=== PATIENT | female | born 2000 | race Caucasian/White ===

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

== ENCOUNTER 2024-09-18 08:00 | Inpatient (IN) ==
[2024-09-18] MEDS ORDERED: LIDOCAINE 1% LOCAL 20 ML VIAL INFIL PRN (15:47)
[2024-09-18] MEDS: LACTATED RINGER'S 1,000 ML IV PRN (16:14)
[2024-09-18 16:20] LABS: Hematocrit (blood only) 36.3 % (37.0-47.0); Hemoglobin 11.9 g/dl (12.0-16.0); Mean Corpuscular Hemoglobin 27.1 pg (25.0-34.0); Mean Corpuscular Hgb Conc 32.8 g/dL (32.0-36.0); Mean Corpuscular Volume 82.7 fL (80.0-100.0); Mean Platelet Volume 10.8 fL (9.4-12.4); Platelet Count 239 K/uL (130-400); RDW Coefficient of Variation 14.1 % (11.5-14.5); RDW Standard Deviation 42.1 fL (36.4-46.3); Red Blood Count 4.39 M/uL (4.20-5.40); White Blood Count 9.19 K/ul (4.8-10.8)
[2024-09-18] MEDS: OXYTOCIN 30 UNITS/NSS 30 UNITS/500 ML BAG IV PRN (17:30)
--- NOTE | 2024-09-18 20:12 | History & Physical Report ---
Date of Service September 18, 2024 Assessment & Plan (1) Obesity affecting , antepartum: Plan: Induction for obesity first baby cervix with 1 cm yesterday cervical Leong attempted by provider on-call last night apparently fell out immediately afterwards her cervix was 1 to 2 cm on arrival it should be noted she arrived late in the day due to high census load on labor and delivery Pitocin started process reviewed Admission and Anticipated Discharge Date Admission Date: September 18, 2024 History of Present Illness Primary Care Provider: JANNIE Prieto Visit [facility] Calculator Estimated Delivery Date Method Current WG Current Estimate 09/23/24 LMP (Certain) 39w 1d LMP: 12/18/23 : 1 Full term: 0 Premature: 0 Total Number of Induced Abortions: 0 Total Number of Spontaneous Abortions: 0 Ectopics: 0 Multiple births: 0 Number of Living Children: 0 and Delivery Plans pre diabetes, insulin resistance-currently Metformin daily GDM *Begin monthly Growth US's @24wks Obesity (BMI 40 and higher @ beginning of ) *Growth US @ 32wks *Weekly NSTs @ 34wks *BMI 40 or greater offer detailed/level II anatomy at [facility]--elects here *BMI 40 or above offer delivery by [facility].------IOL 09/18 *BMI 50 or greater scheduled detailed/level II anatomy at [facility] Allergies Allergy/AdvReac Type Severity Reaction Status Date / Time Sulfa (Sulfonamide Allergy Intermediate Hives Verified 09/18/24 14:57 Antibiotics) Home Medications Medication Instructions Recorded Confirmed Type blood-glucose meter (Contour Next #1 ea 12/13/21 09/17/24 Rx One Meter) lancets 30 gauge (Easy Comfort #100 ea 03/12/22 09/17/24 Rx Lancets) 21-iron fu-folic acid 1 pill PO DAILY 02/05/24 09/18/24 History [ Complete] acetone (urine) test (Ketone Urine #50 ea 03/02/24 09/17/24 Rx Test strips) blood sugar diagnostic (Contour #150 ea 03/02/24 09/17/24 Rx Next Test Strips) magnesium 1 pill PO DAILY 07/14/24 09/18/24 History escitalopram oxalate 20 mg tablet 20 mg PO DAILY #90 tabs 08/25/24 09/18/24 Rx Patient History Medical History Varicella vaccination Right lower quadrant abdominal pain Dietary counseling and surveillance Menorrhagia Fatigue Dysmenorrhea Routine gynecological examination Allergic rhinitis Anemia Anxiety Arthralgia of ankle Asthma Frequent headaches Asthma with acute exacerbation Ovarian torsion Torsion of left fallopian tube Surgical History H/O unilateral salpingectomy left, due to torsion 2018 S/P laparotomy 2018, torsion of left fallopian tube. Family History Mother Asthma FHx: allergies Father Hypertension Denies family history of Ovarian cancer Breast cancer Colorectal cancer Social History Smoking Status: Never smoker Second Hand Exposure: No; Do You Dip or Chew Tobacco: No; Hx Alcohol Use: No Hx Substance Use: No Preferred Language: Honduran Tufter Required: No Beliefs That Will Affect Care: None marital status: marital status details: Kumar Munguia (25) [phone] Current Living Situation: Spouse Current Living Situation Comment: Patient lives with spouse and dogs. current occupational status: employed current occupation: [employer] Other Information That Helps Us Care for You: No Feels Safe at Home: Yes Safety Concerns: Feels Safe At This Time Physical Exam Constitutional: WD/WN, vitals as above well developed and well nourished Respiratory: normal respiratory effort, lungs clear to auscultation normal respiratory effort Cardiovascular: RRR, no murmur, no edema Gastrointestinal (Abdomen): normal bowel sounds, soft, nontender, no hepatosplenomegaly Results & Data Vital Signs (Past 12 Hours) Vital Signs Temp Pulse Resp BP 09/18/24 20:03 85 09/18/24 20:03 129/66 09/18/24 19:00 98.1 F 18 09/18/24 18:56 82 09/18/24 18:56 138/79 09/18/24 18:31 79 09/18/24 18:31 133/80 09/18/24 17:29 76 09/18/24 17:29 123/77 09/18/24 17:28 18 09/18/24 17:28 98.4 F 18 09/18/24 15:00 98.1 F 97 H 18 137/88 09/18/24 14:48 97 H 137/88 Coding Level of Care Code None Diagnoses Obesity affecting , antepartum O99.210
[2024-09-18] MEDS ORDERED: ACETAMINOPHEN 325 MG TAB PO PRN (23:47)
[2024-09-19] MEDS: ACETAMINOPHEN 325 MG TAB ONE (00:08)
[2024-09-19] MEDS ORDERED: ONDANSETRON INJ 2 MG/ML 2 ML VIAL IV PRN ×2 (02:24→13:37)
[2024-09-19] MEDS ORDERED: NALBUPHINE HCL INJ 10 MG/ML AMP IV PRN (02:24)
[2024-09-19] MEDS ORDERED: diphenhydrAMINE 50 MG/ML VIAL IV PRN (02:24)
[2024-09-19] MEDS ORDERED: SODIUM CHLORIDE 0.9% PF INJ 10 ML VIAL EPI PRN ×2 (02:24→13:37)
[2024-09-19] MEDS ORDERED: LIDOCAINE 2% MPF LOCAL 5 ML VIAL EPI PRN ×2 (02:24→13:37)
[2024-09-19] MEDS ORDERED: PROMETHAZINE 6.25 MG/50.25 ML BAG IV PRN (02:24)
[2024-09-19] MEDS ORDERED: NALOXONE HCL 0.4 MG/1 ML VIAL/CARP IV PRN ×2 (02:24→13:37)
[2024-09-19] MEDS ORDERED: BUPIVACAINE 0.25% PF 30 ML VIAL EPI PRN ×2 (02:24→13:37)
[2024-09-19] MEDS ORDERED: fentaNYL citrate PF 100 MCG/2 ML VIAL EPI PRN ×2 (02:24→13:37)
[2024-09-19] MEDS ORDERED: ePHEDrine sulfate 50 MG/ML AMP IV PRN ×2 (02:24→13:37)
[2024-09-19] MEDS ORDERED: NALOXONE HCL 1 MG in SODIUM CHLORIDE 0.9% 1,000 ML IV PRN ×2 (02:24→13:37)
[2024-09-19] MEDS ORDERED: ROPIVACAINE 0.5% PF 5 MG/ML 20 ML VIAL EPI PRN ×2 (02:24→13:37)
--- NOTE | 2024-09-19 02:24 | Anesthesiology Consultation ---
Date of Service September 19, 2024 Assessment & Plan Chart Review Chart Review: Patient NOT seen in Pre Admission Testing and Acceptable Risk for Labor Epidural Consults Requested none ASA ASA2 Proposed Anesthesia Anesthesia Type: Labor Epidural Risk / Benefits Reviewed With: PT / POA / Parent / Guardian, Accepts Plan and Informed Consent Obtained History Height/Weight Height: 5 ft 6 in Weight: 129.274 kg Allergies Allergy/AdvReac Type Severity Reaction Status Date / Time Sulfa (Sulfonamide Allergy Intermediate Hives Verified 09/18/24 14:57 Antibiotics) Medications Home Medications Medication Instructions Recorded Confirmed Last Taken blood-glucose meter (Contour Next #1 ea 12/13/21 09/17/24 Unknown One Meter) lancets 30 gauge (Easy Comfort #100 ea 03/12/22 09/17/24 Unknown Lancets) 21-iron fu-folic acid 1 pill PO DAILY 02/05/24 09/18/24 09/17/24 20:00 [ Complete] acetone (urine) test (Ketone Urine #50 ea 03/02/24 09/17/24 Unknown Test strips) blood sugar diagnostic (Contour #150 ea 03/02/24 09/17/24 Unknown Next Test Strips) magnesium 1 pill PO DAILY 07/14/24 09/18/24 09/17/24 20:00 escitalopram oxalate 20 mg tablet 20 mg PO DAILY #90 tabs 08/25/24 09/18/24 09/17/24 20:00 Active Medications Generic Name Dose Route Start Last Admin Trade Name Freq PRN Reason Stop Dose Admin Lactated Ringer's 1,000 mls @ 125 mls/hr 09/18/24 15:47 09/19/24 02:07 Lr IV 09/19/24 15:46 125 mls/hr .Q8H PRN Administration L&D Protocol Protocol Oxytocin 30 units in 500 mls @ 14 mls/hr 09/18/24 17:08 09/19/24 01:00 Pitocin 30 Units/Nss IV 09/20/24 17:07 0.84 units/hr .Q24H PRN 14 mls/hr Labor Induction/Augmentation Titration Protocol 0.84 UNITS/HR Past Medical History Medical History Varicella vaccination Right lower quadrant abdominal pain Dietary counseling and surveillance Menorrhagia Fatigue Dysmenorrhea Routine gynecological examination Allergic rhinitis Anemia Anxiety Arthralgia of ankle Asthma Frequent headaches Asthma with acute exacerbation Ovarian torsion Torsion of left fallopian tube Exercise / Class Metabolic Activity II 4-5 Yardwork/Stairs/Walk up hill Past Family History Family History Mother Asthma FHx: allergies Father Hypertension Denies family history of Ovarian cancer Breast cancer Colorectal cancer Past Surgical History Surgical History H/O unilateral salpingectomy left, due to torsion 2018 S/P laparotomy 2018, torsion of left fallopian tube. Past Anesthesia History No Hx of Anesthesia Complications and No Family Hx of Anesthesia Complications History of PONV No Hx of PONV and No Hx of Motion Sickness Social History Smoking Status: Never smoker Do You Dip or Chew Tobacco: No Hx Alcohol Use: No Hx Substance Use: No substance use type: does not use Physical Exam Vital Signs Last Vital Signs Temp 36.7 C 09/18/24 21:59 Pulse 81 09/19/24 02:22 Resp 18 09/18/24 21:59 BP 124/77 09/19/24 01:07 Pulse Ox 98 09/19/24 02:22 ENMT Mouth: no dentition abnormality Thyromental Distance: > or= 3.5 Finger Breadths Mallampati Class: II Neck normal visual inspection Respiratory normal respiratory effort Auscultation: lungs clear to auscultation bilaterally Cardiovascular Rate/Rhythm: regular rate and regular rhythm Psychiatric Orientation: alert Testing Laboratory Results 09/18/24 15:57 09/19/24 09/18/24 00:42 16:50 POC Glucose 84 78
[2024-09-19] MEDS: fentANYL 2 MCG/ML BUPIVacaine 0.125%-NSS 100ML BAG ONE ×2 (02:47→14:20)
[2024-09-19] MEDS: BUPIVACAINE 0.25% PF 30 ML VIAL ONE ×2 (02:50→13:49)
[2024-09-19] MEDS: SODIUM CHLORIDE 0.9% PF INJ 10 ML VIAL ONE ×2 (02:50→13:50)
[2024-09-19] MEDS: fentaNYL citrate PF 100 MCG/2 ML VIAL ONE ×2 (02:54→13:42)
[2024-09-19] MEDS: ePHEDrine sulfate 50 MG/ML AMP ONE (02:54)
[2024-09-19] MEDS: LIDOCAINE 2%/EPINEPHRINE 1:200,000 20 ML PF ONE ×2 (02:54→13:50)
[2024-09-19] MEDS: BUPIVACAINE 0.25% PF 30 ML VIAL EPI STA ×2 (03:11→13:42)
[2024-09-19] MEDS: fentaNYL citrate PF 100 MCG/2 ML VIAL EPI STA ×2 (03:11→14:22)
[2024-09-19] MEDS: SODIUM CHLORIDE 0.9% PF INJ 10 ML VIAL EPI STA ×2 (03:12→15:30)
[2024-09-19] MEDS: LIDOCAINE 2%/EPINEPHRINE 1:200,000 20 ML PF EPI STA ×2 (03:12→15:30)
--- NOTE | 2024-09-19 09:30 | Labor Progress Brief Note ---
Date of Service September 19, 2024 Subjective comfortable w/ epidural, ?rom Assessment & Plan (1) Obesity affecting , antepartum: (2) Diabetes mellitus during , antepartum: Plan 24 yo G1 at 39 3/7 [facility] admitted for IOL for obesity, a1gdm VSS Fetus cat 1 Labor - pit at 20, now 2.5-3cm. ?rom earlier but can feel thin membrane and discussed arom and pt agreeable, forebag ruptured clear fluid. IUPC placed to help guide ctx, ok to max to 24 and re-assess. May consider pit break pending progress GDM - bg wnl overnight GBS neg epidural in place Admission and Anticipated Discharge Date Admission Date: September 18, 2024 Physical Exam Genitourinary: Manual OB Exam: + cervical dilation (2.5/3), + cervical effacement 50%, + station -2 and + amniotic fluid (very thin residual membrane palpated, arom completed of residual bag clear ) OB Exam Monitor Tracing: + external FHT monitor used, + intra-uterine pressure catheter used (placed, q4) and + category I (135/mod/+accel/-decel) Results & Data Vital Signs (Past 12 Hours) Vital Signs Temp Pulse Resp BP Pulse Ox 09/19/24 09:27 82 100 09/19/24 09:22 74 99 09/19/24 09:17 89 98 09/19/24 09:16 78 122/69 09/19/24 09:12 92 H 99 09/19/24 09:07 76 98 09/19/24 09:02 84 98 09/19/24 09:01 81 128/75 09/19/24 08:57 93 H 98 09/19/24 08:52 74 96 09/19/24 08:47 80 97 09/19/24 08:46 77 126/71 09/19/24 08:42 97 09/19/24 08:42 80 09/19/24 08:42 80 92 09/19/24 08:37 84 98 09/19/24 08:32 82 122/72 97 09/19/24 08:27 87 98 09/19/24 08:22 86 100 09/19/24 08:17 82 98 09/19/24 08:16 89 132/79 09/19/24 08:12 83 97 09/19/24 08:08 81 92 09/19/24 08:07 86 98 09/19/24 08:02 84 98 09/19/24 08:01 84 132/88 09/19/24 07:57 88 97 09/19/24 07:52 83 97 09/19/24 07:47 85 98 09/19/24 07:46 81 123/71 09/19/24 07:42 78 99 09/19/24 07:37 84 100 09/19/24 07:34 85 89 L 09/19/24 07:32 85 99 09/19/24 07:31 76 116/70 09/19/24 07:27 83 92 09/19/24 07:23 89 94 09/19/24 07:22 88 95 09/19/24 07:17 83 100 09/19/24 07:16 81 119/64 09/19/24 07:12 76 97 09/19/24 07:07 77 96 09/19/24 07:06 97.9 F 15 09/19/24 07:02 82 120/64 95 09/19/24 06:58 88 92 09/19/24 06:57 91 H 99 09/19/24 06:52 83 96 09/19/24 06:47 91 H 120/75 94 09/19/24 06:42 78 97 09/19/24 06:37 80 97 09/19/24 06:32 76 97 09/19/24 06:31 76 103/52 L 09/19/24 06:27 78 98 09/19/24 06:22 79 98 09/19/24 06:17 83 113/57 L 96 09/19/24 06:12 77 97 09/19/24 06:07 80 98 09/19/24 06:04 84 93 09/19/24 06:02 79 98 09/19/24 06:01 88 128/76 09/19/24 05:57 82 100 09/19/24 05:53 78 94 09/19/24 05:52 81 99 09/19/24 05:47 84 132/81 100 09/19/24 05:44 87 92 09/19/24 05:42 88 99 09/19/24 05:38 93 H 91 09/19/24 05:37 87 99 09/19/24 05:32 98 09/19/24 05:32 83 09/19/24 05:32 78 130/74 09/19/24 05:27 79 98 09/19/24 05:22 79 98 09/19/24 05:17 78 99 09/19/24 05:16 78 126/76 09/19/24 05:12 80 99 09/19/24 05:07 77 99 09/19/24 05:03 98.1 F 85 18 126/77 09/19/24 05:02 83 99 09/19/24 04:57 80 98 09/19/24 04:52 86 98 09/19/24 04:51 82 128/69 09/19/24 04:49 85 88/54 L 09/19/24 04:48 83 78/48 L 09/19/24 04:47 83 100 09/19/24 04:42 97 H 99 09/19/24 04:37 86 100 09/19/24 04:32 100 H 99 09/19/24 04:31 90 131/81 09/19/24 04:27 98 H 99 09/19/24 04:22 102 H 100 09/19/24 04:17 86 99 09/19/24 04:16 79 120/64 09/19/24 04:12 78 95 09/19/24 04:07 77 96 09/19/24 04:02 79 122/64 97 09/19/24 03:57 86 96 09/19/24 03:52 79 97 09/19/24 03:47 83 97 09/19/24 03:46 79 115/59 L 09/19/24 03:44 77 93 09/19/24 03:42 78 96 09/19/24 03:37 78 97 09/19/24 03:36 79 94 09/19/24 03:32 78 125/59 L 97 09/19/24 03:28 78 94 09/19/24 03:27 73 96 09/19/24 03:22 75 97 09/19/24 03:17 78 122/58 L 97 09/19/24 03:15 15 09/19/24 03:15 15 09/19/24 03:12 73 97 09/19/24 03:07 76 97 09/19/24 03:02 75 99 09/19/24 03:00 76 115/62 09/19/24 02:57 83 18 99 09/19/24 02:56 83 111/63 09/19/24 02:52 86 98 09/19/24 02:50 16 09/19/24 02:50 16 09/19/24 02:49 81 116/59 L 09/19/24 02:47 79 123/64 99 09/19/24 02:46 78 18 128/65 09/19/24 02:43 81 194/131 H 90 09/19/24 02:42 82 97 09/19/24 02:40 50 L 95/51 L 09/19/24 02:37 73 98 09/19/24 02:32 92 H 100 09/19/24 02:30 100 H 123/77 09/19/24 02:27 87 98 09/19/24 02:22 81 98 09/19/24 02:17 80 98 09/19/24 02:12 82 99 09/19/24 02:07 90 99 09/19/24 02:02 88 100 09/19/24 01:57 92 H 98 09/19/24 01:52 88 99 09/19/24 01:47 94 H 99 09/19/24 01:42 82 97 09/19/24 01:37 84 98 09/19/24 01:32 82 98 09/19/24 01:27 79 97 09/19/24 01:22 86 98 09/19/24 01:17 88 98 09/19/24 01:12 80 98 09/19/24 01:07 93 H 124/77 99 09/18/24 23:45 75 09/18/24 23:45 129/83 09/18/24 23:19 75 09/18/24 23:19 120/68 09/18/24 21:59 18 09/18/24 21:59 98.1 F 18 09/18/24 21:59 84 09/18/24 21:59 132/84 Coding Level of Care Code None Diagnoses Obesity affecting , antepartum O99.210 Diabetes mellitus during , antepartum O24.919
[2024-09-19] MEDS: fentANYL 2 MCG/ML BUPIVacaine 0.125%-NSS 100ML BAG EPI PRN (10:59)
[2024-09-19] MEDS ORDERED: NURSING L&D Epidural Breakthrough Pain Update ONE (11:07)
[2024-09-19] MEDS ORDERED: ROPIVACAINE 0.5% 5 MG/ML 30 ML VIAL ONE (11:51)
[2024-09-19] MEDS ORDERED: LIDOCAINE 2%/EPINEPHRINE 1:200,000 20 ML PF ONE (11:51)
--- NOTE | 2024-09-19 12:03 | Anesthesia Procedure Note ---
Date of Service September 19, 2024 Anesthesia Epidural Re-Dose Vital Signs Temp Pulse Resp BP Pulse Ox 36.8 C 83 15 143/102 H 94 09/19/24 11:31 09/19/24 11:57 09/19/24 07:06 09/19/24 11:48 09/19/24 11:57 Notes Pain Intensity: 7 Dilatation (cm): 2.5 Effacement (%): 50 Called by nursing to evaluate epidural as the patient is having increased pain. The epidural was re-dosed with the following medications (all medications via epidural route) after negative aspiration of the epidural catheter for CSF/HEME 1.2% lidocaine and 0.2% ropivacaine 6ml then 4ml turned to other side - patient not sure different - seems to ease sooner after peak cx - hasn't been checked in a while - will let this bolus set in and reevaluate later. After Epidural Re-Dose Mental Status: alert / awake / arousable Pain: improving with treatment Airway Patency, RR, SpO2: stable & adequate BP & HR: stable & adequate
--- NOTE | 2024-09-19 12:59 | Labor Progress Brief Note ---
Date of Service September 19, 2024 Subjective very uncomfortable even after redose Assessment & Plan (1) Obesity affecting , antepartum: (2) Diabetes mellitus during , antepartum: Plan 24 yo G1 at 39 3/7 [facility] admitted for IOL for obesity, a1gdm VSS Fetus cat 1 Labor - pit at 24, good progress noted. Mostly adequate though occ short period of spacing but then returns. Pt very uncomfortable still after redose so anes thesia will be made aware, will hold pit at 24 for now since has made good progress until gets more comfortable GDM - bg wnl overnight GBS neg epidural in place Admission and Anticipated Discharge Date Admission Date: September 18, 2024 Physical Exam Genitourinary: Manual OB Exam: + cervical dilation (4-5), + cervical effacement 70% and + station -1 OB Exam Monitor Tracing: + external FHT monitor used, + intra-uterine pressure catheter used (q3, mostly adequate but has periods of spacing) and + category II (140/mod/+accel/very occ variable) Results & Data Vital Signs (Past 12 Hours) Vital Signs Temp Pulse Resp BP Pulse Ox 09/19/24 12:53 101 H 79 L 09/19/24 12:49 90 144/73 H 09/19/24 12:48 85 86 L 09/19/24 12:47 86 100 09/19/24 12:42 91 09/19/24 12:42 94 H 09/19/24 12:42 104 H 136/82 09/19/24 12:41 87 92 09/19/24 12:37 84 100 09/19/24 12:35 99 H 92 09/19/24 12:33 82 130/72 09/19/24 12:32 99 H 100 09/19/24 12:27 88 100 09/19/24 12:26 100 H 93 09/19/24 12:22 90 100 09/19/24 12:18 78 124/65 09/19/24 12:17 80 100 09/19/24 12:16 86 139/72 09/19/24 12:12 100 09/19/24 12:12 88 09/19/24 12:12 84 131/71 09/19/24 12:09 76 123/65 09/19/24 12:07 84 100 09/19/24 12:06 73 116/62 09/19/24 12:03 81 93 09/19/24 12:02 79 116/65 99 09/19/24 11:57 83 94 09/19/24 11:56 80 86 L 09/19/24 11:52 88 100 09/19/24 11:48 79 143/102 H 09/19/24 11:47 84 100 09/19/24 11:46 88 93 09/19/24 11:42 79 100 09/19/24 11:37 81 100 09/19/24 11:32 82 152/79 H 100 09/19/24 11:31 98.2 F 09/19/24 11:27 96 H 98 09/19/24 11:22 81 100 09/19/24 11:17 82 100 09/19/24 11:16 78 121/71 09/19/24 11:12 85 98 09/19/24 11:11 87 87 L 09/19/24 11:07 80 100 09/19/24 11:02 99 09/19/24 11:02 78 09/19/24 11:02 77 120/68 09/19/24 10:57 82 98 09/19/24 10:52 77 98 09/19/24 10:47 83 120/61 99 09/19/24 10:42 77 97 09/19/24 10:37 83 98 09/19/24 10:36 77 118/61 09/19/24 10:34 84 134/106 H 09/19/24 10:32 80 100 09/19/24 10:27 79 100 09/19/24 10:22 79 100 09/19/24 10:18 76 116/64 09/19/24 10:17 80 99 09/19/24 10:12 79 99 09/19/24 10:07 77 97 09/19/24 10:03 78 120/68 09/19/24 10:02 78 97 09/19/24 09:57 86 98 09/19/24 09:52 87 97 09/19/24 09:51 93 H 90 09/19/24 09:47 75 98 09/19/24 09:46 81 128/79 09/19/24 09:42 81 98 09/19/24 09:37 84 98 09/19/24 09:32 83 99 09/19/24 09:31 82 127/77 03/29/25 09:27 82 100 09/19/24 09:22 74 99 09/19/24 09:17 89 98 09/19/24 09:16 78 122/69 09/19/24 09:12 92 H 99 09/19/24 09:07 76 98 09/19/24 09:02 84 98 09/19/24 09:01 81 128/75 09/19/24 08:57 93 H 98 09/19/24 08:52 74 96 09/19/24 08:47 80 97 09/19/24 08:46 77 126/71 09/19/24 08:42 97 09/19/24 08:42 80 09/19/24 08:42 80 92 09/19/24 08:37 84 98 09/19/24 08:32 82 122/72 97 09/19/24 08:27 87 98 09/19/24 08:22 86 100 09/19/24 08:17 82 98 09/19/24 08:16 89 132/79 09/19/24 08:12 83 97 09/19/24 08:08 81 92 09/19/24 08:07 86 98 09/19/24 08:02 84 98 09/19/24 08:01 84 132/88 09/19/24 07:57 88 97 09/19/24 07:52 83 97 09/19/24 07:47 85 98 09/19/24 07:46 81 123/71 09/19/24 07:42 78 99 09/19/24 07:37 84 100 09/19/24 07:34 85 89 L 09/19/24 07:32 85 99 09/19/24 07:31 76 116/70 09/19/24 07:27 83 92 09/19/24 07:23 89 94 09/19/24 07:22 88 95 09/19/24 07:17 83 100 09/19/24 07:16 81 119/64 09/19/24 07:12 76 97 09/19/24 07:07 77 96 09/19/24 07:06 97.9 F 15 09/19/24 07:02 82 120/64 95 09/19/24 06:58 88 92 09/19/24 06:57 91 H 99 09/19/24 06:52 83 96 09/19/24 06:47 91 H 120/75 94 09/19/24 06:42 78 97 09/19/24 06:37 80 97 09/19/24 06:32 76 97 09/19/24 06:31 76 103/52 L 09/19/24 06:27 78 98 09/19/24 06:22 79 98 09/19/24 06:17 83 113/57 L 96 09/19/24 06:12 77 97 09/19/24 06:07 80 98 09/19/24 06:04 84 93 09/19/24 06:02 79 98 09/19/24 06:01 88 128/76 09/19/24 05:57 82 100 09/19/24 05:53 78 94 09/19/24 05:52 81 99 09/19/24 05:47 84 132/81 100 09/19/24 05:44 87 92 09/19/24 05:42 88 99 09/19/24 05:38 93 H 91 09/19/24 05:37 87 99 09/19/24 05:32 98 09/19/24 05:32 83 09/19/24 05:32 78 130/74 09/19/24 05:27 79 98 09/19/24 05:22 79 98 09/19/24 05:17 78 99 09/19/24 05:16 78 126/76 09/19/24 05:12 80 99 09/19/24 05:07 77 99 09/19/24 05:03 98.1 F 85 18 126/77 09/19/24 05:02 83 99 09/19/24 04:57 80 98 09/19/24 04:52 86 98 09/19/24 04:51 82 128/69 09/19/24 04:49 85 88/54 L 09/19/24 04:48 83 78/48 L 09/19/24 04:47 83 100 09/19/24 04:42 97 H 99 09/19/24 04:37 86 100 09/19/24 04:32 100 H 99 09/19/24 04:31 90 131/81 09/19/24 04:27 98 H 99 09/19/24 04:22 102 H 100 09/19/24 04:17 86 99 09/19/24 04:16 79 120/64 03/29/25 04:12 78 95 09/19/24 04:07 77 96 09/19/24 04:02 79 122/64 97 09/19/24 03:57 86 96 09/19/24 03:52 79 97 09/19/24 03:47 83 97 09/19/24 03:46 79 115/59 L 09/19/24 03:44 77 93 09/19/24 03:42 78 96 09/19/24 03:37 78 97 09/19/24 03:36 79 94 09/19/24 03:32 78 125/59 L 97 09/19/24 03:28 78 94 09/19/24 03:27 73 96 09/19/24 03:22 75 97 09/19/24 03:17 78 122/58 L 97 09/19/24 03:15 15 09/19/24 03:15 15 09/19/24 03:12 73 97 09/19/24 03:07 76 97 09/19/24 03:02 75 99 09/19/24 03:00 76 115/62 09/19/24 02:57 83 18 99 09/19/24 02:56 83 111/63 09/19/24 02:52 86 98 09/19/24 02:50 16 09/19/24 02:50 16 09/19/24 02:49 81 116/59 L 09/19/24 02:47 79 123/64 99 09/19/24 02:46 78 18 128/65 09/19/24 02:43 81 194/131 H 90 09/19/24 02:42 82 97 09/19/24 02:40 50 L 95/51 L 09/19/24 02:37 73 98 09/19/24 02:32 92 H 100 09/19/24 02:30 100 H 123/77 09/19/24 02:27 87 98 09/19/24 02:22 81 98 09/19/24 02:17 80 98 09/19/24 02:12 82 99 09/19/24 02:07 90 99 09/19/24 02:02 88 100 09/19/24 01:57 92 H 98 09/19/24 01:52 88 99 09/19/24 01:47 94 H 99 09/19/24 01:42 82 97 09/19/24 01:37 84 98 09/19/24 01:32 82 98 09/19/24 01:27 79 97 09/19/24 01:22 86 98 09/19/24 01:17 88 98 09/19/24 01:12 80 98 09/19/24 01:07 93 H 124/77 99 Coding Level of Care Code None Diagnoses Obesity affecting , antepartum O99.210 Diabetes mellitus during , antepartum O24.919
--- NOTE | 2024-09-19 13:32 | Anesthesia Procedure Note ---
Date of Service September 19, 2024 Anesthesia Epidural Re-Dose Vital Signs Temp Pulse Resp BP Pulse Ox 36.8 C 73 15 121/67 100 09/19/24 11:31 09/19/24 13:28 09/19/24 07:06 09/19/24 13:28 09/19/24 13:24 Notes Pain Intensity: 8 Dilatation (cm): 2.5 Effacement (%): 50 After Epidural Re-Dose Mental Status: alert / awake / arousable Pain: see Notes below Airway Patency, RR, SpO2: stable & adequate BP & HR: stable & adequate Additional Notes: patient not improved with redose - cather at 8 to 9 cm - ?maybe too far out? decided to replace - did cse as per anesthesia record with difficulty - much improved
[2024-09-19] MEDS ORDERED: fentANYL 2 MCG/ML BUPIVacaine 0.125%-NSS 100ML BAG EPI PRN (13:37)
--- NOTE | 2024-09-19 15:10 | Labor Progress Brief Note ---
Date of Service September 19, 2024 Subjective comfortable w/ new epidural Assessment & Plan (1) Obesity affecting , antepartum: (2) Diabetes mellitus during , antepartum: Plan 24 yo G1 at 39 3/7 wga admitted for IOL for obesity, a1gdm VSS Fetus cat 1 Labor - pit at 24, now complete but not feeling much with recent epidural change. Will continue repositioning w/ peanut ball to help baby come down and then start pushing GDM - bg wnl overnight GBS neg epidural in place Admission and Anticipated Discharge Date Admission Date: September 18, 2024 Physical Exam Genitourinary: Manual OB Exam: + cervical dilation 10 cm, + cervical effacement 100% and + station 0 OB Exam Monitor Tracing: + external FHT monitor used, + intra-uterine pressure catheter used (q3, mostly adequate but has periods of spacing) and + category II (140/mod/+accel/occ early and variables) Results & Data Vital Signs (Past 12 Hours) Vital Signs Temp Pulse Resp BP Pulse Ox 09/19/24 14:57 93 H 94 09/19/24 14:55 85 141/82 H 09/19/24 14:51 98 H 93 09/19/24 14:47 81 93 09/19/24 14:43 80 94 09/19/24 14:41 82 116/67 09/19/24 14:32 80 92 09/19/24 14:25 94 09/19/24 14:25 80 09/19/24 14:25 79 130/86 09/19/24 14:18 79 94 09/19/24 14:17 75 96 09/19/24 14:09 80 119/66 09/19/24 14:05 79 94 09/19/24 13:59 80 96 09/19/24 13:57 85 93 09/19/24 13:55 98.2 F 09/19/24 13:54 96 09/19/24 13:54 90 09/19/24 13:54 88 112/59 L 09/19/24 13:50 84 93 09/19/24 13:49 92 H 96 09/19/24 13:48 88 110/59 L 09/19/24 13:45 84 94 09/19/24 13:44 86 95 09/19/24 13:43 91 H 104/60 09/19/24 13:42 82 100/58 L 09/19/24 13:40 81 104/57 L 09/19/24 13:39 84 95 09/19/24 13:38 78 102/56 L 09/19/24 13:36 81 110/57 L 09/19/24 13:34 82 102/59 L 99 09/19/24 13:32 89 102/57 L 09/19/24 13:30 68 109/66 09/19/24 13:29 71 100 09/19/24 13:28 73 121/67 09/19/24 13:24 83 100 09/19/24 13:19 115 H 95 09/19/24 13:12 86 L 09/19/24 13:12 82 09/19/24 13:12 95 H 91 09/19/24 13:06 86 94 09/19/24 13:04 75 131/74 09/19/24 13:01 85 97 09/19/24 12:53 100 09/19/24 12:53 97 H 09/19/24 12:53 101 H 79 L 09/19/24 12:49 90 144/73 H 09/19/24 12:48 85 86 L 09/19/24 12:47 86 100 09/19/24 12:42 91 09/19/24 12:42 94 H 09/19/24 12:42 104 H 136/82 09/19/24 12:41 87 92 09/19/24 12:37 84 100 09/19/24 12:35 99 H 92 09/19/24 12:33 82 130/72 09/19/24 12:32 99 H 100 09/19/24 12:27 88 100 09/19/24 12:26 100 H 93 09/19/24 12:22 90 100 09/19/24 12:18 78 124/65 09/19/24 12:17 80 100 09/19/24 12:16 86 139/72 09/19/24 12:12 100 09/19/24 12:12 88 09/19/24 12:12 84 131/71 09/19/24 12:09 76 123/65 09/19/24 12:07 84 100 09/19/24 12:06 73 116/62 09/19/24 12:03 81 93 09/19/24 12:02 79 116/65 99 09/19/24 11:57 83 94 09/19/24 11:56 80 86 L 09/19/24 11:52 88 100 09/19/24 11:48 79 143/102 H 09/19/24 11:47 84 100 09/19/24 11:46 88 93 09/19/24 11:42 79 100 09/19/24 11:37 81 100 09/19/24 11:32 82 152/79 H 100 09/19/24 11:31 98.2 F 09/19/24 11:27 96 H 98 09/19/24 11:22 81 100 09/19/24 11:17 82 100 09/19/24 11:16 78 121/71 09/19/24 11:12 85 98 09/19/24 11:11 87 87 L 09/19/24 11:07 80 100 09/19/24 11:02 99 09/19/24 11:02 78 09/19/24 11:02 77 120/68 09/19/24 10:57 82 98 09/19/24 10:52 77 98 09/19/24 10:47 83 120/61 99 09/19/24 10:42 77 97 09/19/24 10:37 83 98 09/19/24 10:36 77 118/61 09/19/24 10:34 84 134/106 H 09/19/24 10:32 80 100 09/19/24 10:27 79 100 09/19/24 10:22 79 100 09/19/24 10:18 76 116/64 09/19/24 10:17 80 99 09/19/24 10:12 79 99 09/19/24 10:07 77 97 09/19/24 10:03 78 120/68 09/19/24 10:02 78 97 09/19/24 09:57 86 98 09/19/24 09:52 87 97 09/19/24 09:51 93 H 90 09/19/24 09:47 75 98 09/19/24 09:46 81 128/79 09/19/24 09:42 81 98 09/19/24 09:37 84 98 09/19/24 09:32 83 99 09/19/24 09:31 82 127/77 09/19/24 09:27 82 100 09/19/24 09:22 74 99 09/19/24 09:17 89 98 09/19/24 09:16 78 122/69 09/19/24 09:12 92 H 99 09/19/24 09:07 76 98 09/19/24 09:02 84 98 09/19/24 09:01 81 128/75 09/19/24 08:57 93 H 98 09/19/24 08:52 74 96 09/19/24 08:47 80 97 09/19/24 08:46 77 126/71 09/19/24 08:42 97 09/19/24 08:42 80 09/19/24 08:42 80 92 09/19/24 08:37 84 98 09/19/24 08:32 82 122/72 97 09/19/24 08:27 87 98 09/19/24 08:22 86 100 09/19/24 08:17 82 98 09/19/24 08:16 89 132/79 09/19/24 08:12 83 97 09/19/24 08:08 81 92 09/19/24 08:07 86 98 09/19/24 08:02 84 98 09/19/24 08:01 84 132/88 09/19/24 07:57 88 97 09/19/24 07:52 83 97 09/19/24 07:47 85 98 09/19/24 07:46 81 123/71 09/19/24 07:42 78 99 09/19/24 07:37 84 100 09/19/24 07:34 85 89 L 09/19/24 07:32 85 99 09/19/24 07:31 76 116/70 09/19/24 07:27 83 92 09/19/24 07:23 89 94 09/19/24 07:22 88 95 09/19/24 07:17 83 100 09/19/24 07:16 81 119/64 09/19/24 07:12 76 97 09/19/24 07:07 77 96 09/19/24 07:06 97.9 F 15 09/19/24 07:02 82 120/64 95 09/19/24 06:58 88 92 09/19/24 06:57 91 H 99 09/19/24 06:52 83 96 09/19/24 06:47 91 H 120/75 94 09/19/24 06:42 78 97 09/19/24 06:37 80 97 09/19/24 06:32 76 97 09/19/24 06:31 76 103/52 L 09/19/24 06:27 78 98 09/19/24 06:22 79 98 09/19/24 06:17 83 113/57 L 96 09/19/24 06:12 77 97 09/19/24 06:07 80 98 09/19/24 06:04 84 93 09/19/24 06:02 79 98 09/19/24 06:01 88 128/76 09/19/24 05:57 82 100 09/19/24 05:53 78 94 09/19/24 05:52 81 99 09/19/24 05:47 84 132/81 100 09/19/24 05:44 87 92 09/19/24 05:42 88 99 09/19/24 05:38 93 H 91 09/19/24 05:37 87 99 09/19/24 05:32 98 09/19/24 05:32 83 09/19/24 05:32 78 130/74 09/19/24 05:27 79 98 09/19/24 05:22 79 98 09/19/24 05:17 78 99 09/19/24 05:16 78 126/76 09/19/24 05:12 80 99 09/19/24 05:07 77 99 09/19/24 05:03 98.1 F 85 18 126/77 09/19/24 05:02 83 99 09/19/24 04:57 80 98 09/19/24 04:52 86 98 09/19/24 04:51 82 128/69 09/19/24 04:49 85 88/54 L 09/19/24 04:48 83 78/48 L 09/19/24 04:47 83 100 09/19/24 04:42 97 H 99 09/19/24 04:37 86 100 09/19/24 04:32 100 H 99 09/19/24 04:31 90 131/81 09/19/24 04:27 98 H 99 09/19/24 04:22 102 H 100 09/19/24 04:17 86 99 09/19/24 04:16 79 120/64 09/19/24 04:12 78 95 09/19/24 04:07 77 96 09/19/24 04:02 79 122/64 97 09/19/24 03:57 86 96 09/19/24 03:52 79 97 09/19/24 03:47 83 97 09/19/24 03:46 79 115/59 L 09/19/24 03:44 77 93 09/19/24 03:42 78 96 09/19/24 03:37 78 97 09/19/24 03:36 79 94 09/19/24 03:32 78 125/59 L 97 09/19/24 03:28 78 94 09/19/24 03:27 73 96 09/19/24 03:22 75 97 09/19/24 03:17 78 122/58 L 97 09/19/24 03:15 15 09/19/24 03:15 15 09/19/24 03:12 73 97 09/19/24 03:07 76 97 Coding Level of Care Code None Diagnoses Obesity affecting , antepartum O99.210 Diabetes mellitus during , antepartum O24.919
[2024-09-19] MEDS: OXYTOCIN 30 UNITS/NSS 30 UNITS/500 ML BAG IV PRN (17:33)
[2024-09-19] MEDS: miSOPROStoL 200 MCG TAB PR ONE (17:39)
--- NOTE | 2024-09-19 17:51 | Delivery Summary ---
Vaginal Delivery Summary Date of Service September 19, 2024 Vaginal Delivery Summary and 2nd Degree LAC PREOPERATIVE DIAGNOSIS: 1. Single intrauterine at 39 3/7 wga 2. A1GDM 3. BMI > 40 POSTOPERATIVE DIAGNOSIS: 1. Single intrauterine at 39 3/7 wga 2. A1GDM 3. BMI > 40 4. Delivered PROCEDURE: 1. Normal spontaneous vaginal delivery. SURGEON: Екатерина Huggins MD ANESTHESIA: Epidural. QUANTITATIVE BLOOD LOSS: 615 mL FLUIDS: Continuous LR. URINE OUTPUT: 25ml COMPLICATIONS: None. CONDITION: Stable. INDICATIONS: 24 yo G1 at 39 3/7 wga presented for induction of labor one day ago for BMI. Leong bulb had been placed and fallen out at 2cm. She was started on pitocin and received an epidural for pain control. She had srom and subsequent arom of forebag. She continued to progress nicely but did require an epidural replacement due to pain control. Following this, she progressed to complete and desired to push. FINDINGS: A viable female infant, weight pending with Apgars of 8 and 9 at 1 and 5 minutes respectively. SPECIMEN: Cord blood OPERATIVE REPORT: The patient progressed to 10 cm, 100% effaced and +2 station, pushed over intact perineum with anesthesia to deliver a viable female , weight and Apgars as above. Head of delivered in VENANCIO position. No nuchal cord was present. Body and shoulders were delivered without difficulty. was delivered to maternal abdomen and nursing staff. Delayed cord clamping was performed for 45 seconds. Cord was clamped and cut. Cord blood was obtained. Placenta delivered spontaneously intact with 3-vessel cord. IV oxytocin and fundal massage were given but lower uterine segment atony was noted. Additional bimanual massage was then provided and there was excellent hemostasis. Vagina, cervix, perineum, and placenta were inspected. A second degree and right vaginal laceration were repaired in the usual fashion using 3-0 vicryl. There was excellent hemostasis. 800mcg cytotec was then placed AL for prophylaxis. Sponge and needle counts correct x2. No sponges were left behind. Mother and stable in immediate period. [facility] [place] Vaginal Delivery Charge Vaginal Delivery Codes: 30830 global code for the antepartum, delivery, and post- Delivery Type Details: and 2nd Degree LAC
[2024-09-19] MEDS ORDERED: OXYTOCIN 30 UNITS/NSS 30 UNITS/500 ML BAG IV PRN (17:54)
[2024-09-19] MEDS ORDERED: bisacodyL 10 MG SUPP PR PRN (17:54)
[2024-09-19] MEDS ORDERED: HYDROCORTISONE ACETATE 25 MG SUPP PR PRN (17:54)
--- NOTE | 2024-09-19 18:42 | Anesthesia Procedure Note ---
Date of Service September 19, 2024 Anesthesia Post Epidural Note Vital Signs Vital Signs: Temp Pulse Resp BP Pulse Ox 36.6 C 99 H 15 140/63 97 09/19/24 17:45 09/19/24 18:35 09/19/24 07:06 09/19/24 18:35 09/19/24 17:32 Pain Intensity Lower Abdomen: Pain Intensity: 2 Notes Mental Status: alert / awake / arousable and participated in evaluation Nausea / Vomiting: adequately controlled Pain: adequately controlled Airway Patency, RR, SpO2: stable & adequate BP & HR: stable & adequate Hydration State: stable & adequate Neuraxial Anesthesia: was administered and sensory block is resolving Anesthetic Complications: no major complications apparent Epidural: Removed without complications and With tip intact
[2024-09-19] MEDS: METHYLERGONOVINE MALEATE 0.2 MG/ML AMP ONE (19:07)
[2024-09-19 20:10] LABS: Hematocrit (blood only) 34.4 % (37.0-47.0); Hemoglobin 11.3 g/dl (12.0-16.0); Mean Corpuscular Hemoglobin 27.3 pg (25.0-34.0); Mean Corpuscular Hgb Conc 32.8 g/dL (32.0-36.0); Mean Corpuscular Volume 83.1 fL (80.0-100.0); Mean Platelet Volume 10.7 fL (9.4-12.4); Platelet Count 216 K/uL (130-400); RDW Coefficient of Variation 13.9 % (11.5-14.5); Red Blood Count 4.14 M/uL (4.20-5.40); White Blood Count 16.41 K/ul (4.8-10.8)
[2024-09-19 20:28] LABS: Albumin Level 3.1 gm/dl (3.4-5.0); BUN Creatinine Ratio 15.9 (10-20); Bilirubin,Total 0.7 mg/dl (0.2-1.0); Calcium 8.2 mg/dl (8.6-10.3); Creatinine Clr Calc Pharmacy 271.7 ml/min; Globulin 3.1 gm/dl (2.5-4.0); Potassium 3.8 mmol/L (3.5-5.1); Total Protein 6.2 gm/dl (6.0-8.3)
[2024-09-19] MEDS: IBUPROFEN 600 MG TAB PO PRN (20:34)
[2024-09-19] MEDS: BENZOCAINE 20% SPRY 85 APPLN/85 GM CAN EXT PRN (20:34)
[2024-09-19] MEDS: DIPHTHER/TETAN/PERTUS Vaccine (Tdap, Adol/Adult) 0.5mL IM ONE (20:35)
[2024-09-19] MEDS: DOCUSATE SODIUM 100 MG CAP PO SCH (20:35)
[2024-09-20 07:38] LABS: Hematocrit (blood only) 30.4 % (37.0-47.0); Mean Corpuscular Hemoglobin 27.5 pg (25.0-34.0); Mean Corpuscular Hgb Conc 32.9 g/dL (32.0-36.0); Mean Corpuscular Volume 83.5 fL (80.0-100.0); Platelet Count 210 K/uL (130-400); RDW Coefficient of Variation 14.2 % (11.5-14.5); RDW Standard Deviation 42.9 fL (36.4-46.3); Red Blood Count 3.64 M/uL (4.20-5.40); White Blood Count 10.98 K/ul (4.8-10.8)
--- NOTE | 2024-09-20 07:53 | Obstetrical Progress Note ---
Date of Service September 20, 2024 Assessment & Plan (1) Encounter for care and examination after delivery: PP1 feeling well. Continue routine care Subjective Ambulation: ambulating normally Voiding: no voiding problems Passing Gas:: Yes Diet Tolerance:: regular diet Lochia:: Small Feeding Type:: breast feeding Pain well managed with medication Review of Systems Denies fevers, chills, n/v, BLAS, CP, SOB Physical Exam Constitutional WD/WN, vitals as above no acute distress Respiratory normal respiratory effort, lungs clear to auscultation Cardiovascular RRR, no murmur, no edema Gastrointestinal (Abdomen) Percussion/Palpation: abdomen soft; abdomen nontender fundus firm at umbilicus and NT Musculoskeletal BLE symmetric, nonerythematous, nontender Results & Data Vital Signs (Past 12 Hours) Vital Signs Temp Pulse Pulse Resp BP BP BP 09/20/24 05:00 97.9 F 89 16 113/76 09/19/24 23:30 97.9 F 89 18 132/80 09/19/24 22:05 99.1 F 99 H 18 130/81 09/19/24 20:35 98.2 F 18 09/19/24 20:32 122 H 133/76 09/19/24 20:17 114 H 135/75 09/19/24 20:02 110 H 138/77 Pulse Ox O2 Del Method 09/20/24 05:00 Room Air 09/19/24 23:30 Room Air 09/19/24 22:05 99 Room Air 09/19/24 20:35 09/19/24 20:32 09/19/24 20:17 09/19/24 20:02
[2024-09-20] MEDS: PRENATAL VITAMIN 1 TAB PO SCH (08:14)
[2024-09-20] MEDS: ACETAMINOPHEN 325 MG TAB PO PRN (09:08)
[2024-09-20] MEDS: bisacodyL 5 MG TABEC PO SCH (20:29)
[2024-09-20] MEDS ORDERED: Nursing to Pharmacy Communication SCH (21:30)
[2024-09-20] MEDS: ESCITALOPRAM OXALATE 20 MG TAB PO SCH (22:30)
[2024-09-21 06:11] LABS: Hematocrit (blood only) 30.1 % (37.0-47.0); Hemoglobin 9.6 g/dl (12.0-16.0)
--- NOTE | 2024-09-21 06:29 | Obstetrical Progress Note ---
Date of Service September 21, 2024 Assessment & Plan (1) Encounter for care and examination after delivery: (2) Obesity affecting , antepartum: (3) Pre-diabetes: Plan Discharge to today Pt to schedule follow up with [employer] [employer] in 6 weeks Admission and Anticipated Discharge Date Admission Date: September 18, 2024 Supervising Physician Co-Signing Physician Notes Patient seen with resident and agree with the above findings and plan. Stable for discharge if preferred. Doing well Subjective Pt is 24 yo post- day 2 s/p at 39w3d. complicated by pre-diabetes Ambulation:In and out of room Voiding:voiding normally Passing gas: yes BM: yes Diet tolerance:regular diet Lochia:bloody, no clots Feeding type: breast Current pain level: 3 /10 improved with ibuprofen Resting comfortably this morning in NAD. Denies BLAS, CP, SOB, N/V/D, LE pain/swelling. Review of Systems Review of Systems: As per HPI Physical Exam Constitutional: WD/WN, vitals as above Respiratory: normal respiratory effort, lungs clear to auscultation Cardiovascular: RRR, no murmur, no edema Gastrointestinal (Abdomen): normal bowel sounds, soft, nontender, no hepatosplenomegaly Uterine fundus firm and at level of umbilicus Neurologic: PERRL, EOMI, accommodation nl, no face palsy, no dysarthria Moving all 4 extremities on command Psychiatric: A+Ox3, euthymic affect Results & Data Vital Signs (Past 12 Hours) Vital Signs Temp Pulse Resp BP BP O2 Del Method 09/21/24 04:00 36.8 C 87 18 125/85 Room Air 09/20/24 21:00 36.8 C 85 130/88 Room Air Resident Activity Tracking Resident Involvement: Resident Care Provided Care Provided: Adult Hospital Medicine
[2024-09-21] MEDS ORDERED: ESCITALOPRAM OXALATE 20 MG TAB PO SCH (09:00)
[2024-09-21 10:11] VITALS: BP 115/80; PULSE 79; RESP 17; TEMP 97.9; O2SAT 98
== END 2024-09-21 12:00 | disposition home or self-care (01) | DRG 807 ==
LOC: 4S1 14:29 → 4E2 09-19 21:07